=== PATIENT | male | born 1975 | race American Indian/Alaskan Native ===

== ENCOUNTER 2023-07-10 20:33 | Emergency (ER) | payer OTHER ==
[2023-07-10] MEDS ORDERED: Ketorolac 30 MG/ML SDV IVPUSH ONE (21:16)
[2023-07-10] MEDS ORDERED: Dexamethasone 4 MG/ML SDV IVPUSH ONE (21:17)
[2023-07-10] MEDS ORDERED: Orphenadrine 60 MG/2 ML Inj IM ONE (21:19)
[2023-07-10 23:06] VITALS: BP 114/71; PULSE 56
== END 2023-07-10 23:30 | disposition home or self-care (01) ==
LOC: DL.ED 20:33
DX: S39.012A Strain of muscle, fascia and tendon of lower back, initial encounter (principal); I10 Essential (primary) hypertension; V49.50XA Passenger injured in collision with unspecified motor vehicles in traffic accident, initial encounter; Y92.410 Unspecified street and highway as the place of occurrence of the external cause
CPT/HCPCS: 72128; 72131; 96372; 96374; 96375; 99284; 99284-25; J1100; J1885; J2360

== ENCOUNTER 2023-11-08 05:51 | Emergency (ER) | payer OTHER ==
[2023-11-08 06:01] VITALS: BP 112/98; PULSE 100
[2023-11-08] MEDS ORDERED: Amoxicillin 500 MG Cap PO ONE (06:03)
[2023-11-08] MEDS ORDERED: Take Home: Amoxicillin 500 MG, 6 Cap Pack PO ONE (06:03)
[2023-11-08] MEDS ORDERED: prednisoLONE Soln 15 MG/5 ML UD Cup PO ONE (06:06)
[2023-11-08] MEDS ORDERED: Ketorolac 30 MG/ML SDV IM ONE (06:09)
== END 2023-11-08 06:23 | disposition home or self-care (01) ==
LOC: DL.ED 05:51
DX: H66.90 Otitis media, unspecified, unspecified ear (principal); I10 Essential (primary) hypertension
CPT/HCPCS: 96372; 99282; A9270-GY; J1885

== ENCOUNTER 2025-01-06 20:11 | Emergency (ER) | payer OTHER ==
[2025-01-06 20:30] VITALS: BP 138/78; PULSE 105
[2025-01-06 20:51] LABS: BASOPHILS PERCENT AUTO 0.3 % (0.0-1.0); EOSINOPHILS PERCENT AUTO 3.3 % (1.0-3.0); HEMATOCRIT 44.3 % (40.0-54.0); HEMOGLOBIN 14.3 g/dL (14.0-18.0); LYMPHOCYTES PERCENT AUTO 29.6 % (20.5-50.1); MEAN CORPUSCULAR HEMOGLOBIN 28.7 pg (27.0-34.0); MEAN CORPUSCULAR HGB CONC 32.3 g/dL (33.0-35.0); MEAN CORPUSCULAR VOLUME 88.8 fL (80-100); NEUTROPHILS PERCENT AUTO 60.8 % (42.2-75.2); PLATELET COUNT,PLT 311 10^3/uL (150-450); RED BLOOD CELL COUNT 4.99 10^6/uL (4.6-6.2); WHITE BLOOD CELL COUNT,WBC 7.5 10^3/uL (5.0-10.0)
[2025-01-06] MEDS: Dexamethasone 4 MG/ML SDV IM ONE (21:02)
[2025-01-06] MEDS: diphenhydrAMINE 50 MG/ML SDV IVPUSH ONE (21:02)
== END 2025-01-06 21:10 | disposition home or self-care (01) ==
LOC: DL.ED 20:11
DX: T78.40XA Allergy, unspecified, initial encounter (principal); I10 Essential (primary) hypertension; Z79.899 Other long term (current) drug therapy; Z86.16 Personal history of COVID-19
CPT/HCPCS: 36415; 85025; 87081; 87430; 96372; 96374; 99283; J1100; J1200

== ENCOUNTER 2025-09-24 04:12 | Emergency (ER) | payer OTHER ==
[2025-09-24 04:39] VITALS: BP 142/86; PULSE 93
[2025-09-24] MEDS: Ketorolac 30 MG/ML SDV IM ONE (04:47)
== END 2025-09-24 05:21 | disposition home or self-care (01) ==
LOC: DL.ED 04:12
DX: K02.9 Dental caries, unspecified (principal); K08.89 Other specified disorders of teeth and supporting structures; I10 Essential (primary) hypertension; Z86.16 Personal history of COVID-19
CPT/HCPCS: 64400; 96372; 99282; 99282-25; A9270-GY; J1885